=== PATIENT | female | born 1960 | race Caucasian/White ===

== ENCOUNTER 2018-08-07 16:00 | Emergency (ER) | payer MEDICAID ==
[2018-08-07] MEDS ORDERED: Sodium Chloride 0.9% 10 ML Syringe FLUSH PRN (16:16)
[2018-08-07 16:54] LABS: CHLORIDE,CL 103 mmol/L (98-107); SODIUM,NA 141 mmol/L (136-145)
--- NOTE | 2018-08-07 17:00 | EDM.PDOC ---
ED HPI GENERAL MEDICAL PROBLEM - General Chief Complaint: General Stated Complaint: MUSCULOSKELETAL CHEST/BACK PAIN AND SPASMS Time Seen by Provider: 08/07/18 16:32 Source of Information: Reports: Patient History Limitations: Reports: No Limitations - History of Present Illness INITIAL COMMENTS - FREE TEXT/NARRATIVE: Patient comes to ER with complaint of 4 days left sided chest pain. This started while patient was shoveling snow. Has gradually increased in intensity. Most prominent along left chest, radiates towards her back shoulder blade at times. Inspiration and raising arms over her head aggravate the pain. Has tried leftover Flexeril and a single leftover prescription pain pall to help her sleep (last night). Also using Ibuprofen. Denies central chest pain. No change in pain with activity unless she uses her arms. No SOB/diaphoresis/nausea/emesis. No other complaints. Laying down makes pain worse. Hard to get comfortable. No history of heart disease. Originally present to [facility] for evaluation but was instead sent to the ER. - Related Data Allergies Allergy/AdvReac Type Severity Reaction Status Date / Time No Known Allergies Allergy Verified 08/07/18 16:04 Home Meds: Home Meds Ascorbic Acid [Vitamin C] 1,000 mg PO DAILY 08/07/18 [History] Chlorthalidone 25 mg PO DAILY 08/07/18 [History] Cholecalciferol (Vitamin D3) [Vitamin D3] 5,000 unit PO DAILY 08/07/18 [History] Cyanocobalamin (Vitamin B-12) [Vitamin B-12] 500 mcg PO DAILY 08/07/18 [History] Ibuprofen 800 mg PO TID PRN 08/07/18 [History] Losartan [Cozaar] 100 mg PO DAILY 08/07/18 [History] Magnesium Phosphate 1 gm TOP BID 08/07/18 [History] Multivitamin [Daily Jenn] 1 each PO DAILY 08/07/18 [History] NIFEdipine [Nifedipine ER] 30 mg PO DAILY 08/07/18 [History] Potassium Chloride 10 meq PO DAILY 08/07/18 [History] Past Medical History Cardiovascular History: Reports: High Cholesterol, Hypertension Gastrointestinal History: Reports: Other (See Below) (Fatty liver suspected) Endocrine/Metabolic History: Reports: Hypothyroidism, Obesity/BMI 30+ Hematologic History: Reports: B12 Deficiency - Past Surgical History Female Surgical History: Reports: Breast Implant, Hysterectomy Social & Family History - Tobacco Use Smoking Status *Q: Never Smoker - Caffeine Use Caffeine Use: Reports: Coffee - Alcohol Use Alcohol Use Frequency: Rarely - Recreational Drug Use Recreational Drug Use: No Drug Use in Last 12 Months: No ED ROS GENERAL - Review of Systems Review Of Systems: See Below Constitutional: Reports: No Symptoms HEENT: Reports: No Symptoms Respiratory: Reports: Pleuritic Chest Pain. Denies: Shortness of Breath, Wheezing, Cough, Sputum, Hemoptysis Cardiovascular: Reports: Chest Pain (see HPI). Denies: Dyspnea on Exertion, Edema, Lightheadedness, Orthopnea, Palpitations, PND, Syncope GI/Abdominal: Reports: No Symptoms : Reports: No Symptoms Musculoskeletal: Reports: No Symptoms Skin: Reports: No Symptoms Neurological: Reports: No Symptoms Psychiatric: Reports: No Symptoms Hematologic/Lymphatic: Reports: No Symptoms ED EXAM, GENERAL - Physical Exam Exam: See Below Exam Limited By: No Limitations General Appearance: Alert, No Apparent Distress, Obese Eye Exam: Bilateral Eye: EOMI, PERRL Ears: Normal External Exam Nose: Normal Inspection Throat/Mouth: Normal Inspection, Normal Lips, Normal Voice, No Airway Compromise Head: Atraumatic, Normocephalic Neck: Normal Inspection, Supple, Non-Tender, Full Range of Motion. No: Lymphadenopathy (L), Lymphadenopathy (R) Respiratory/Chest: No Respiratory Distress, Lungs Clear, Normal Breath Sounds, No Accessory Muscle Use, Other (chest tender with palpation laterally on left. Also some tenderness near lower lateral border of scapula on left. Palpation reproduces patient's pain) Peripheral Pulses: 2+: Radial (L), Radial (R) GI/Abdominal: Normal Bowel Sounds, Soft, Non-Tender, No Distention (Female) Exam: Deferred Rectal (Female) Exam: Deferred Back Exam: No: CVA Tenderness (L), CVA Tenderness (R), Muscle Spasm, Paraspinal Tenderness, Vertebral Tenderness Extremities: Normal Inspection, Normal Capillary Refill Neurological: Alert, Oriented, Normal Cognition, Normal Gait, No Motor/Sensory Deficits Psychiatric: Normal Affect, Normal Mood Skin Exam: Warm, Dry, Intact, Normal Color EKG INTERPRETATION EKG Date: 08/07/18 Time: 16:14 Rhythm: NSR Rate (Beats/Min): 79 [place]: Normal P-Wave: Present QRS: Normal ST-T: Normal QT: Normal Comparison: NA - No Prior EKG Course - Vital Signs Last Recorded V/S: Last Vital Signs Temp 36.7 C 08/07/18 16:00 Pulse 87 08/07/18 16:30 Resp 20 08/07/18 16:30 BP 138/86 08/07/18 16:30 Pulse Ox 99 08/07/18 16:30 - Orders/Labs/Meds Orders: Active Orders 24 hr Category Date Time Status EKG Documentation Completion [RC] ASDIRECTED Care 08/07/18 16:13 Active Peripheral IV Care [RC] . DIRECTED Care 08/07/18 16:17 Active Chest 2V [CR] Stat Exams 08/07/18 16:16 Ordered Peripheral IV Insertion Adult [OM.PC] Routine Oth 08/07/18 16:16 Ordered Labs: Laboratory Tests 08/07/18 08/07/18 08/07/18 Range/Units 16:14 16:15 16:15 WBC 8.6 (4.0-10.2) K/uL RBC 4.77 (3.77-5.09) M/uL Hgb 14.1 (11.7-15.5) g/dL Hct 43.2 (34.0-46.0) % MCV 90.6 (84.0-98.0) fL MCH 29.6 (28.2-33.3) pg MCHC 32.6 (31.7-36.0) g/dL RDW 14.5 H (11.2-14.1) % Plt Count 298 (150-350) K/uL Neut % (Auto) 61.5 (45.0-80.0) % Lymph % (Auto) 27.3 (10.0-50.0) % [place] % (Auto) 7.9 (2.0-14.0) % Eos % (Auto) 3.1 (0.0-5.0) % Baso % (Auto) 0.2 (0.0-2.0) % Neut # (Auto) 5.30 (1.40-7.00) K/uL Lymph # (Auto) 2.35 (0.50-3.50) K/uL [place] # (Auto) 0.68 (0.00-1.00) K/uL Eos # (Auto) 0.27 (0.00-0.50) K/uL Baso # (Auto) 0.02 (0.00-0.20) K/uL PT (9.5-12.0) SEC INR APTT (21.0-31.3) SEC D-Dimer, Quantitative 179 (0-400) ng/mL Sodium 141 (136-145) mmol/L Potassium 4.2 (3.5-5.1) mmol/L Chloride 103 (98-107) mmol/L Carbon Dioxide 30.7 (21.0-32.0) mmol/L BUN 16 (7-18) mg/dL Creatinine 0.84 (0.51-1.17) mg/dL Est Cr Clr Drug Dosing 66.49 mL/min Estimated GFR (MDRD) > 60 mL/min Glucose 97 (74-106) mg/dL Lactic Acid (0.4-2.0) mmol/L Calcium 9.2 (8.5-10.1) mg/dL Magnesium 1.8 (1.8-2.4) mg/dL Total Bilirubin 0.3 (0.2-1.0) mg/dL AST 49 H (15-37) U/L ALT 99 H (12-78) U/L Alkaline Phosphatase 143 H (46-116) IU/L Creatine Kinase 31 (26-308) U/L Creatine Kinase Index 1.9 (0.0-2.5) % CK-MB (CK-2) 0.60 (0.00-3.60) ng/mL Troponin I 0.010 (0.000-0.056) ng/mL NT-Pro-B Natriuret Pep 21 (0-125) pg/mL Total Protein 7.8 (6.4-8.2) g/dL Albumin 3.4 (3.4-5.0) g/dL TSH, Ultra Sensitive 6.168 H (0.358-3.740) mIU/mL 08/07/18 08/07/18 Range/Units 16:15 16:20 WBC (4.0-10.2) K/uL RBC (3.77-5.09) M/uL Hgb (11.7-15.5) g/dL Hct (34.0-46.0) % MCV (84.0-98.0) fL MCH (28.2-33.3) pg MCHC (31.7-36.0) g/dL RDW (11.2-14.1) % Plt Count (150-350) K/uL Neut % (Auto) (45.0-80.0) % Lymph % (Auto) (10.0-50.0) % [place] % (Auto) (2.0-14.0) % Eos % (Auto) (0.0-5.0) % Baso % (Auto) (0.0-2.0) % Neut # (Auto) (1.40-7.00) K/uL Lymph # (Auto) (0.50-3.50) K/uL [place] # (Auto) (0.00-1.00) K/uL Eos # (Auto) (0.00-0.50) K/uL Baso # (Auto) (0.00-0.20) K/uL PT 10.5 (9.5-12.0) SEC INR 1.0 APTT 30.8 (21.0-31.3) SEC D-Dimer, Quantitative (0-400) ng/mL Sodium (136-145) mmol/L Potassium (3.5-5.1) mmol/L Chloride (98-107) mmol/L Carbon Dioxide (21.0-32.0) mmol/L BUN (7-18) mg/dL Creatinine (0.51-1.17) mg/dL Est Cr Clr Drug Dosing mL/min Estimated GFR (MDRD) mL/min Glucose (74-106) mg/dL Lactic Acid 0.8 (0.4-2.0) mmol/L Calcium (8.5-10.1) mg/dL Magnesium (1.8-2.4) mg/dL Total Bilirubin (0.2-1.0) mg/dL AST (15-37) U/L ALT (12-78) U/L Alkaline Phosphatase (46-116) IU/L Creatine Kinase (26-308) U/L Creatine Kinase Index (0.0-2.5) % CK-MB (CK-2) (0.00-3.60) ng/mL Troponin I (0.000-0.056) ng/mL NT-Pro-B Natriuret Pep (0-125) pg/mL Total Protein (6.4-8.2) g/dL Albumin (3.4-5.0) g/dL TSH, Ultra Sensitive (0.358-3.740) mIU/mL Meds: Medications Discontinued Medications Generic Name Dose Route Start Last Admin Trade Name Freq PRN Reason Stop Dose Admin Sodium Chloride 10 ml 08/07/18 16:16 Saline Flush FLUSH ASDIRECTED PRN Keep Vein Open - Radiology Interpretation Free Text/Narrative:: No noted pneumothorax. Cardiac silhouette appears enlarged. No focal pneumonia appreciated. - Re-Assessments/Exams Free Text/Narrative Re-Assessment/Exam: BNP, Troponin, DDImer normal. CBC unremarkable. TSH elevated. AST and ALT elevated. EKG did not show changes of acute ischemia. BP elevated. Suspect partly due to having to come to the ER as well as the chest discomfort. Pain is in area of serratus anterior muscle. Suspect pulled muscle/muscle spasm. No heavy lifting advised for the next week. Patient does have chiropractor appointment scheduled for next week. Sent home with ER pack of Valium. To break tabs into half (5mg) and take twice daily to help with spasms/pain. She can continue Ibuprofen or Aleve. Tylenol not advised due to elevated LFTs. Suspect these are elevated secondary to fatty liver changes given patient's weight and other current medical conditions. She is not to drink ETOH or use the Flexeril while taking Valium. Patient is to schedule follow up appointment to see primary provider within a week to have further evaluation performed on her thyroid as well as investigation into the elevated LFTs. Precautions reviewed prior to discharge. Patient in agreement with above plan. Departure - Departure Time of Disposition: 17:50 Disposition: Home, Self-Care 01 Condition: Good Clinical Impression: Muscle spasm, Elevated TSH, Elevated LFTs - Discharge Information *PRESCRIPTION DRUG MONITORING PROGRAM REVIEWED*: Not Applicable *COPY OF PRESCRIPTION DRUG MONITORING REPORT IN PATIENT EVE: Not Applicable Instructions: Costochondritis, [id number], Diazepam tablets Referrals: Evonne Andino PA-C [Primary Care Provider] - Forms: ED Department Discharge Additional Instructions: Follow up with chiropractor at schedule appointment and see if therapy helps with current pain complaint. Obtain Magnesium Glycinate and take one tab daily (250-500mg) Make an appointment with your primary provider to have full thyroid panel performed. Your TSH was elevated today and that indicates that you have hypothyroidism. You will need to be started on supplemental thyroid Discuss monitoring your elevated liver functions (AST and ALT). Again, these are likely due to fatty liver infiltration but further testing may be indicated. OK continue Ibuprofen or Aleve for pain. Avoid Tylenol given the above issues. Take 1/2 of the Valium tabs you were given at night to help with muscle spasm and pain. Do NOT take the Flexeril that you have at home at the same time as both can cause respiratory depression when mixed together. You may take 1/2 Valium in the morning too, however it may make you drowsy and affect your ability to drive a car. No alcohol while taking Valium. Avoid heavy lifting. Stretching as discussed in ER is highly recommended at least 4 times a day. Follow up otherwise as needed if you have additional problems. - My Orders Last 24 Hours: My Active Orders 08/07/18 16:13 EKG Documentation Completion [RC] ASDIRECTED 08/07/18 16:16 Chest 2V [CR] Stat Peripheral IV Insertion Adult [OM.PC] Routine 08/07/18 16:17 Peripheral IV Care [RC] . DIRECTED - Assessment/Plan Last 24 Hours: My Active Orders 08/07/18 16:13 EKG Documentation Completion [RC] ASDIRECTED 08/07/18 16:16 Chest 2V [CR] Stat Peripheral IV Insertion Adult [OM.PC] Routine 08/07/18 16:17 Peripheral IV Care [RC] . DIRECTED
== END 2018-08-07 18:25 | disposition home or self-care (01) ==
LOC: LL.ED 16:00
DX: M62.838 Other muscle spasm (principal); R79.89 Other specified abnormal findings of blood chemistry; I10 Essential (primary) hypertension; E66.9 Obesity, unspecified; Z79.899 Other long term (current) drug therapy
CPT/HCPCS: 36000; 36415; 71046; 80053; 82550; 82553; 83605; 83735; 83880; 84443; 84484; 85025; 85379; 85610; 85730; 93005; 99285